=== PATIENT | female | born 1975 | race Two or more races ===

== ENCOUNTER → 2016-12-19 | Outpatient (CLI) | payer BC ==
--- NOTE | 2016-12-19 10:42 | RAD ---
Indication closed fracture of the nasal bone. A lateral view as well as AP and May views were obtained. No displaced nasal bone fracture is seen. The nasal spine appears normal. Some mucosal thickening is seen associated with the right maxillary sinus. Mild sinusitis is not excluded. The remainder the paranasal sinuses appear unremarkable
== END | disposition home or self-care (01) ==
LOC: RAD 09:21
PROVIDERS: ATTEND Physician Assistant
DX: S02.2XXA Fracture of nasal bones, initial encounter for closed fracture (principal); X58.XXXA Exposure to other specified factors, initial encounter; Y93.89 Activity, other specified; Y92.89 Other specified places as the place of occurrence of the external cause; Y99.8 Other external cause status
CPT/HCPCS: 70140